=== PATIENT | male | born 2000 | race Caucasian/White ===

== ENCOUNTER 2021-08-20 06:38 | Emergency (ER) | payer SELFPAY ==
[~2021-08-20 06:38] MED LIST: IBUPROFEN600 MG PO; VISTARIL25 MG PO
[2021-08-20] MEDS ORDERED: BACTRIM DS TAB1 EACH PO (08:14)
[2021-08-20] MEDS ORDERED: CEPHALEXIN500 M1 PO (08:14)
[2021-08-20] MEDS ORDERED: IBUPROFEN800 MG PO (08:14)
== END 2021-08-20 08:18 | disposition home or self-care (01) ==
LOC: ER1 06:38
DX: L02.413 Cutaneous abscess of right upper limb (principal); F17.290 Nicotine dependence, other tobacco product, uncomplicated
CPT/HCPCS: 10061; 87070; 87077; 87186; 87205; 99283

== ENCOUNTER 2021-08-22 16:36 | Emergency (ER) | payer SELFPAY ==
[~2021-08-22 16:36] MED LIST changes: +BACTRIM DS TAB1 EACH PO; +CEPHALEXIN500 M1 PO; +IBUPROFEN800 MG PO
[2021-08-22] MEDS ORDERED: IBUPROFEN600 MG PO (19:44)
[2021-08-22] MEDS ORDERED: BACTROBAN OINT22 GM EXT (19:44)
== END 2021-08-22 16:43 | disposition left against medical advice (07) ==
LOC: ER1 16:36
DX: Z53.21 Procedure and treatment not carried out due to patient leaving prior to being seen by health care provider (principal)

== ENCOUNTER 2021-08-22 18:54 | Emergency (ER) | payer SELFPAY ==
[2021-08-22] MEDS ORDERED: IBUPROFEN600 MG PO (19:44)
[2021-08-22] MEDS ORDERED: BACTROBAN OINT22 GM EXT (19:44)
== END 2021-08-22 19:47 | disposition home or self-care (01) ==
LOC: ER1 18:54
DX: Z48.03 Encounter for change or removal of drains (principal); F17.290 Nicotine dependence, other tobacco product, uncomplicated
CPT/HCPCS: 99282